=== PATIENT | female | born 1985 | race Caucasian/White ===

== ENCOUNTER 2017-01-24 21:05 | Emergency (ER) | payer OTHER ==
[~2017-01-24] VITALS: Ht 165.1 cm; Wt 82.5 kg
[2017-01-24 21:08] VITALS: Ht 165.1 cm; Wt 82.5 kg
[2017-01-24] MEDS ORDERED: ACETAMINOPHEN 500 MG TAB PO STA (22:13)
--- NOTE | 2017-01-24 22:30 | ERD ---
ER Documentation Chief Complaint Date/Time DATE: 01/24/17 TIME: 22:27 Chief Complaint right arm pain s/p mechanical fall. Took Motrin at 2000 HPI This is a 32-year-old female who presents emergency department today complaining of right arm pain after tripping over a rug and falling directly on top of her arm. States that she took Motrin earlier in the day. Denies any fevers or chills, previous trauma. ROS All systems reviewed and are negative except as per history of present illness. Medications Home Meds Active Scripts Acetaminophen* (Tylophen*) 500 Mg Capsule, 1 CAP PO Q6H Y for PAIN AND OR ELEVATED TEMP, #30 CAP Prov:FORTUNATO JAVIER PA-C 01/24/17 Ibuprofen* (Motrin*) 600 Mg Tab, 600 MG PO Q6, #30 TAB Prov:FORTUNATO JAVIER PA-C 01/24/17 Allergies Allergies: Coded Allergies: No Known Allergies (Verified Allergy, Mild, 01/24/17) PMhx/Soc Medical and Surgical Hx: pt denies Medical Hx History of Surgery: Yes (CSECTION X 3, THYROID SX) Anesthesia Reaction: No Hx Neurological Disorder: No Hx Respiratory Disorders: No Hx Cardiac Disorders: No Hx Psychiatric Problems: No Hx Miscellaneous Medical Probl: No Hx Alcohol Use: No Hx Substance Use: Yes (METH) Hx Tobacco Use: No Smoking Status: Never smoker Physical Exam Vitals Vital Signs Date Time Temp Pulse Resp B/P Pulse Ox O2 Delivery O2 Flow Rate FiO2 01/24/17 21:08 98.1 100 20 138/86 97 Physical Exam Const: NAD Head: Atraumatic Eyes: Normal Conjunctiva ENT: Normal External Ears, Nose and Mouth. Neck: Full range of motion..~ No meningismus. Resp: Clear to auscultation bilaterally Cardio: Regular rate and rhythm, no murmurs Skin: No petechiae or rashes MSK: right aArm with no obvious deformity. No effusion. No ecchymosis. Unable to assess range of motion secondary to pain. Tenderness to palpation right shoulder, humerus and elbow. Full active range of motion at wrist. Pulses 2+. Distal neurovascularly intact. Neur: Awake and alert Psych: Normal Mood and Affect Results 24 hrs Current Medications Medications (Trade) Dose Ordered Sig/Taco Route PRN Reason Start Time Stop Time Status Last Admin Dose Admin Acetaminophen (Tylenol Tab) 500 mg ONCE STAT PO 01/24/17 22:13 01/24/17 22:16 DC 01/24/17 22:29 DIAGNOSTIC IMAGING REPORT Patient: DONNA FANG : 1985 Age: 32 Sex: F MR #: [id number] DOS: 01/24/17 0000 Ordering MD: FORTUNATO JAVIER PA-C Location: [facility] Room/Bed: PROCEDURE: XR Right Elbow. CLINICAL INDICATION: Trauma to the right elbow status post fall TECHNIQUE: AP, lateral and oblique views of the right elbow performed. COMPARISON: None. FINDINGS: There is normal mineralization and alignment. No fracture or osseous lesion is identified. There is no significant joint space narrowing. The soft tissues are unremarkable. IMPRESSION: Unremarkable examination. RPTAT: [facility] Physician Dionte Date Time Electronically viewed and signed by Physician Dionte on 01/24/2017 23:20 RS/ CC: FORTUNATO JAVIER PA-C DIAGNOSTIC IMAGING REPORT Patient: DONNA FANG : 1985 Age: 32 Sex: F MR #: [id number] DOS: 01/24/17 0000 Ordering MD: FORTUNATO JAVIER PA-C Location: [facility] Room/Bed: PROCEDURE: XR humerus. CLINICAL INDICATION: 32 years of age, female. Pain. TECHNIQUE: AP and lateral views of the right humerus. COMPARISON: None available. FINDINGS: Negative for evidence of acute fracture. Shoulder and elbow unremarkable. Negative for significant soft tissue swelling. IMPRESSION: Negative for evidence of acute fracture of the right humerus. RPTAT: [facility] Physician Madan Date Time Electronically viewed and signed by Physician Madan on 01/24/2017 23: 19 CS/ CC: FORTUNATO JAVIER PA-C DIAGNOSTIC IMAGING REPORT Patient: DONNA FANG : 1985 Age: 32 Sex: F MR #: [id number] DOS: 01/24/17 0000 Ordering MD: FORTUNATO JAVIER PA-C Location: [facility] Room/Bed: PROCEDURE: XR Shoulder. CLINICAL INDICATION: 32-year of age, female. Right shoulder pain. Fall. TECHNIQUE: Three views of the right shoulder. Frontal views in internal and external rotation and transscapular Y view. COMPARISON: None available FINDINGS: Negative for evidence of acute fracture or dislocation. There is good range of motion in internal and external rotation. Acromioclavicular joint appears normal. Coracoclavicular interval appears normal. There are no periarticular calcifications. The visualized lung is clear. IMPRESSION: Negative for evidence of acute fracture or dislocation of the right shoulder. RPTAT: [facility] Physician Madan Date Time Electronically viewed and signed by Physician Madan on 01/24/2017 23: 19 CS/ CC: FORTUNATO JAVIER PA-C Procedures/MDM This a 32-year-old female who presents the emergency department today complaining of right arm pain after tripping over a rug and falling directly on her arm. Given patient complaints I did obtain imaging. Per the radiology report images of the right shoulder, humerus, and elbow are unremarkable. There is no acute fracture or dislocation. Patient symptoms at this time is consistent with upper arm injury secondary to fall likely sprain versus strain versus contusion. Patient declined narcotics here in the emergency department. 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 She was given Tylenol. She was also given a sling for comfort. At this time the patient is stable for discharge and outpatient management. Patient should follow up with their PCP in the next 1-2 days. They may return to the emergency department sooner for any persistent or worsening of symptoms. Patient understood and agreed with the plan. Departure Diagnosis: Primary Impression: Injury of upper extremity Encounter type: initial encounter Laterality: right Qualified Code: S49.91XA - Injury of right upper extremity, initial encounter Condition: FORTUNATO De Guzman PA-C Jan 24, 2017 22:30
--- NOTE | 2017-01-24 23:19 | RADRPT ---
PROCEDURE: XR humerus. CLINICAL INDICATION: 32 years of age, female. Pain. TECHNIQUE: AP and lateral views of the right humerus. COMPARISON: None available. FINDINGS: Negative for evidence of acute fracture. Shoulder and elbow unremarkable. Negative for significant soft tissue swelling. IMPRESSION: Negative for evidence of acute fracture of the right humerus. RPTAT: [facility] Physician Madan Date Time Electronically viewed and signed by Sidra Martinez Physician on 01/24/2017 23:19 /
--- NOTE | 2017-01-24 23:19 | RADRPT ---
PROCEDURE: XR Shoulder. CLINICAL INDICATION: 32-year of age, female. Right shoulder pain. Fall. TECHNIQUE: Three views of the right shoulder. Frontal views in internal and external rotation and transscapular Y view. COMPARISON: None available FINDINGS: Negative for evidence of acute fracture or dislocation. There is good range of motion in internal and external rotation. Acromioclavicular joint appears normal. Coracoclavicular interval appears normal. There are no periarticular calcifications. The visualized lung is clear. IMPRESSION: Negative for evidence of acute fracture or dislocation of the right shoulder. RPTAT: [facility] Physician Madan Date Time Electronically viewed and signed by Sidra Martinez Physician on 01/24/2017 23:19 CS/
--- NOTE | 2017-01-24 23:20 | RADRPT ---
PROCEDURE: XR Right Elbow. CLINICAL INDICATION: Trauma to the right elbow status post fall TECHNIQUE: AP, lateral and oblique views of the right elbow performed. COMPARISON: None. FINDINGS: There is normal mineralization and alignment. No fracture or osseous lesion is identified. There is no significant joint space narrowing. The soft tissues are unremarkable. IMPRESSION: Unremarkable examination. RPTAT: [facility] Physician Dionte Date Time Electronically viewed and signed by Physician Dionte on 01/24/2017 23:20 RS/
[2017-01-24] MEDS ORDERED: ACET500C5 PO (23:54)
[2017-01-24] MEDS ORDERED: IBUP-1542 PO (23:54)
[2017-01-25 00:12] VITALS: BP 128/88; PULSE 93; RESP 16
== END 2017-01-25 00:15 | disposition home or self-care (01) ==
LOC: FTE 21:05
DX: S49.91XA Unspecified injury of right shoulder and upper arm, initial encounter (principal); W01.0XXA Fall on same level from slipping, tripping and stumbling without subsequent striking against object, initial encounter; Y92.9 Unspecified place or not applicable
CPT/HCPCS: 73030; 73060; 73080; Z7502; Z7610